=== PATIENT | male | born 1960 | race African-American/Black ===

== ENCOUNTER 2023-11-29 14:30 | Emergency (ER) | payer SELFPAY ==
[~2023-11-29] VITALS: Ht 177.8 cm; Wt 73.0 kg
[2023-11-29 14:33] VITALS: O2SAT 98
[2023-11-29 17:47] VITALS: BP 108/59; PULSE 84; RESP 15; TEMP 98.5; O2SAT 99
== END 2023-11-29 20:10 | disposition home or self-care (01) ==
LOC: ER 14:30
DX: F10.129 Alcohol abuse with intoxication, unspecified (principal); G31.89 Other specified degenerative diseases of nervous system; W18.39XA Other fall on same level, initial encounter; Y93.89 Activity, other specified; Y92.89 Other specified places as the place of occurrence of the external cause; Y99.8 Other external cause status; Y90.9 Presence of alcohol in blood, level not specified
CPT/HCPCS: 82962; 99284